=== PATIENT | female | born 1945 | race Caucasian/White ===

== ENCOUNTER → 2017-11-05 | Outpatient (CLI) | payer MEDICARE, BC ==
[~2017-11-05] MED LIST: ASCO500 PO; Advil200 M1 PO; CIPR250 PO; CYAN1000I IM; FERSU300 PO; HYDMOR2 PO; Humalog100 UNIT/1; INSR10I SC; INSULANI SC; INSULANPEN SC; KETO60I IM; METO10 PO; METO25ER; NATURAL LUTEIN20 MG PO; PROM25 PO; Percocet 5-3251 EACH PO; RABE20 PO; RXHYDMOR2 PO; TAMS.4ER PO; VITB100 PO; Zofran Odt4 MG SL
== END | disposition home or self-care (01) ==
LOC: PLD 07:41 → LAB SHORT 07:41
DX: R60.9 Edema, unspecified (principal); L98.9 Disorder of the skin and subcutaneous tissue, unspecified
CPT/HCPCS: 88305; 88312

== ENCOUNTER → 2020-10-24 | Outpatient (CLI) | payer MEDICARE, BC | END | disposition home or self-care (01) | LOC: LAB 17:26 → LAB SHORT 17:26 | DX: L08.0 Pyoderma (principal) | CPT/HCPCS: 87070; 87077; 87186; 87205 ==

== ENCOUNTER 2025-03-20 02:57 | Emergency (ER) | payer MEDICARE, BC ==
[~2025-03-20] VITALS: Ht 165.1 cm; Wt 63.5 kg
[~2025-03-20 02:57] MED LIST changes: +HUMALOG100 UNIT/1 SC; -Humalog100 UNIT/1; +INSDET100 SC; +PRAVACHOL20 M1 PO; +RABEPRAZOLE SOD20 MG PO
[2025-03-20] MEDS ORDERED: FentaNYL Citrate 50 MCG/ML 2 ML Injection IV PRN (03:25)
[2025-03-20] MEDS ORDERED: Ondansetron HCl 2 MG / ML 2ML Vial ONE (03:27)
[2025-03-20 03:28] LABS: BASOPHILS ABSOLUTE AUTO 0.03 K/mm3 (0.00-0.23); BASOPHILS PERCENT AUTO 1 % (0-2); EOSINOPHILS ABSOLUTE AUTO 0.10 K/mm3 (0.00-0.68); EOSINOPHILS PERCENT AUTO 2 % (0-6); Hematocrit 31.4 % (33.0-51.0); Hemoglobin 10.6 g/dL (11.5-16.0); IMMATURE GRAN ABSOLUTE AUTO 0.02 K/mm3 (0.00-0.10); IMMATURE GRAN PERCENT AUTO 0 % (0-1); LYMPHOCYTES ABSOLUTE AUTO 2.22 K/mm3 (0.84-5.20); LYMPHOCYTES PERCENT AUTO 35 % (21-46); MONOCYTES ABSOLUTE AUTO 0.43 K/mm3 (0.16-1.47); MONOCYTES PERCENT AUTO 7 % (4-13); Mean Corpuscular HGB Conc 33.8 g/dL (31.5-36.5); Mean Corpuscular Volume 86 fL (80-100); NEUTROPHILS ABSOLUTE AUTO 3.57 K/mm3 (1.96-9.15); NEUTROPHILS PERCENT AUTO 56 % (41-73); NRBC ABSOLUTE 0.00 K/mm3 (0.00-0.02); NRBC Auto 0.0 /100 WBC (0.0-0.2); Platelet Count 240 K/mm3 (150-400); RDW Coefficient Variation 12.8 % (11.7-14.2); RDW Standard Deviation 40.2 fL (35.1-46.3)
[2025-03-20] MEDS ORDERED: Ondansetron HCl 2 MG / ML 2ML Vial IV ONE ×2 (03:30→07:50)
[2025-03-20 03:43] LABS: Alanine Aminotransfer (ALT/SGP 22.0 U/L (12-78); Albumin, Blood 3.7 g/dL (3.4-5.0); Albumin/Globulin Ratio 1.1 (0.8-1.8); Anion Gap 10.0 mmol/L (3-11); Aspartate Aminotrans (AST/SGOT 19.0 U/L (12-37); Bilirubin, Total 0.4 mg/dL (0.1-1.0); Blood Urea Nitrogen 21.0 mg/dL (8-24); CO2, Blood 23.0 mmol/L (21-32); Calcium, Blood 9.1 mg/dL (8.5-10.1); Chloride, Blood 110.0 mmol/L (98-108); Creatinine, Blood 1.08 mg/dL (0.40-1.00); Globulin, Blood 3.3 g/dL (2.2-4.0); Glucose, Blood 141.0 mg/dL (70-99); Potassium, Blood 3.2 mmol/L (3.5-5.5); Sodium, Blood 140.0 mmol/L (136-145); Total Protein, Blood 7.0 g/dL (6.4-8.2)
[2025-03-20] MEDS ORDERED: NS 1,000 ML IV SCH (04:15)
[2025-03-20] MEDS ORDERED: HYDROmorphone HCl/Pf 1MG SYR IV PRN (04:15)
[2025-03-20] MEDS ORDERED: Prochlorperazine Edisylate 10 mg Vial IV ONE (05:00)
[2025-03-20 07:37] LABS: Source, Urine Clean Catch
[2025-03-20 07:51] LABS: Bilirubin, Urine Neg (Neg); Color, Urine Yellow (P-Yellow); Glucose Qualitative, Urine 2+ (Neg); Ketones, Urine 2+ (Neg); Leukocyte Esterase, Urine Neg (Neg); Protein, Urine 2+ (Neg); Specific Gravity, Urine 1.015 (1.003-1.022); Urobilinogen, Urine NORM (Normal)
[2025-03-20 08:01] LABS: Red Blood Cells, Urine 25-50 /hpf (0-2)
[2025-03-20] MEDS ORDERED: TAMS.4ER PO (08:58)
[2025-03-20] MEDS ORDERED: ONDA4ODT MM (08:58)
[2025-03-20] MEDS ORDERED: HYDR1TAB94 PO (08:58)
[2025-03-20 09:15] VITALS: BP 157/59
== END 2025-03-20 09:30 | disposition home or self-care (01) ==
LOC: ER 02:57
PROVIDERS: Emergency Medicine
DX: N20.0 Calculus of kidney (principal); Z88.0 Allergy status to penicillin; Z88.2 Allergy status to sulfonamides; Z88.5 Allergy status to narcotic agent; Z79.899 Other long term (current) drug therapy; E11.9 Type 2 diabetes mellitus without complications; I10 Essential (primary) hypertension; Z87.442 Personal history of urinary calculi; Z87.891 Personal history of nicotine dependence
CPT/HCPCS: 80053; 81001; 85025; 96361; 96374; 96375; 96376; 99283-25; 99284; A9270; J0780; J1171; J1885; J2405; J2765; J3010; J7030; J7120

== ENCOUNTER 2025-03-22 22:13 | Inpatient (IN) | payer MEDICARE, BC ==
[~2025-03-22] VITALS: Ht 165.1 cm; Wt 71.5 kg
[~2025-03-22 22:13] MED LIST changes: +HYDR1TAB94 PO; +ONDA4ODT MM
[2025-03-22 22:35] LABS: BASOPHILS ABSOLUTE AUTO 0.03 K/mm3 (0.00-0.23); BASOPHILS PERCENT AUTO 0 % (0-2); EOSINOPHILS ABSOLUTE AUTO 0.01 K/mm3 (0.00-0.68); EOSINOPHILS PERCENT AUTO 0 % (0-6); Hematocrit 29.9 % (33.0-51.0); Hemoglobin 9.9 g/dL (11.5-16.0); IMMATURE GRAN ABSOLUTE AUTO 0.09 K/mm3 (0.00-0.10); IMMATURE GRAN PERCENT AUTO 1 % (0-1); LYMPHOCYTES ABSOLUTE AUTO 0.31 K/mm3 (0.84-5.20); LYMPHOCYTES PERCENT AUTO 3 % (21-46); MONOCYTES ABSOLUTE AUTO 0.23 K/mm3 (0.16-1.47); MONOCYTES PERCENT AUTO 3 % (4-13); Mean Corpuscular HGB Conc 33.1 g/dL (31.5-36.5); Mean Corpuscular Volume 87 fL (80-100); NEUTROPHILS ABSOLUTE AUTO 8.51 K/mm3 (1.96-9.15); NEUTROPHILS PERCENT AUTO 93 % (41-73); NRBC ABSOLUTE 0.00 K/mm3 (0.00-0.02); NRBC Auto 0.0 /100 WBC (0.0-0.2); Platelet Count 116 K/mm3 (150-400); RDW Coefficient Variation 13.2 % (11.7-14.2); RDW Standard Deviation 42.5 fL (35.1-46.3)
[2025-03-22 22:53] LABS: Alanine Aminotransfer (ALT/SGP 29.0 U/L (12-78); Albumin, Blood 3.0 g/dL (3.4-5.0); Albumin/Globulin Ratio 0.9 (0.8-1.8); Anion Gap 12.0 mmol/L (3-11); Aspartate Aminotrans (AST/SGOT 49.0 U/L (12-37); Bilirubin, Total 0.3 mg/dL (0.1-1.0); Blood Urea Nitrogen 39.0 mg/dL (8-24); CO2, Blood 22.0 mmol/L (21-32); Calcium, Blood 8.6 mg/dL (8.5-10.1); Chloride, Blood 107.0 mmol/L (98-108); Creatinine, Blood 2.4 mg/dL (0.40-1.00); Globulin, Blood 3.5 g/dL (2.2-4.0); Glucose, Blood 123.0 mg/dL (70-99); Potassium, Blood 3.8 mmol/L (3.5-5.5); Sodium, Blood 137.0 mmol/L (136-145); Total Protein, Blood 6.5 g/dL (6.4-8.2)
[2025-03-22] MEDS ORDERED: NS 1,000 ML IV SCH (23:30)
[2025-03-23] VITALS (22 sets, daily range): BP systolic 122–192; BP diastolic 56–136
[2025-03-23] MEDS ORDERED: Morphine Sulfate 4 MG/1 ML Injection IV ONE (00:05)
[2025-03-23 00:48] LABS: pH Blood Venous 7.32 (7.34-7.37)
[2025-03-23] MEDS ORDERED: HYDROmorphone HCl/Pf 1MG SYR IV ONE (01:05)
[2025-03-23 02:48] LABS: pH Blood Venous 7.27 (7.34-7.37)
[2025-03-23] MEDS ORDERED: Metoclopramide HCl 5MG / ML 2ML Vial IV PRN (03:00)
[2025-03-23] MEDS ORDERED: Ketorolac Tromethamine 15mg Vial IV PRN (03:00)
[2025-03-23] MEDS ORDERED: FentaNYL Citrate 50 MCG/ML 2 ML Injection IV PRN (03:00)
[2025-03-23] MEDS ORDERED: FLU VACC TS2025(65UP)/MF59C/PF 45 MCG/0.5 ML SYRINGE IM SCH (03:00)
[2025-03-23] MEDS ORDERED: Labetalol HCL 5 MG/ML 4ML Injection (Single Dose) IV PRN (03:15)
[2025-03-23] MEDS ORDERED: HydrALAZINE HCl 20 MG / ML 1ML Vial IV PRN (03:15)
[2025-03-23] MEDS ORDERED: Furosemide 10 MG / ML 2ML Vial IV ONE (03:25)
[2025-03-23] MEDS ORDERED: INSDET100 (03:40)
[2025-03-23 04:04] LABS: BASOPHILS ABSOLUTE AUTO 0.03 K/mm3 (0.00-0.23); BASOPHILS PERCENT AUTO 0 % (0-2); EOSINOPHILS ABSOLUTE AUTO 0.00 K/mm3 (0.00-0.68); EOSINOPHILS PERCENT AUTO 0 % (0-6); Hematocrit 33.0 % (33.0-51.0); Hemoglobin 11.0 g/dL (11.5-16.0); IMMATURE GRAN ABSOLUTE AUTO 0.13 K/mm3 (0.00-0.10); IMMATURE GRAN PERCENT AUTO 1 % (0-1); LYMPHOCYTES ABSOLUTE AUTO 0.27 K/mm3 (0.84-5.20); LYMPHOCYTES PERCENT AUTO 3 % (21-46); MONOCYTES ABSOLUTE AUTO 0.26 K/mm3 (0.16-1.47); MONOCYTES PERCENT AUTO 3 % (4-13); Mean Corpuscular HGB Conc 33.3 g/dL (31.5-36.5); Mean Corpuscular Volume 87 fL (80-100); NEUTROPHILS ABSOLUTE AUTO 9.24 K/mm3 (1.96-9.15); NEUTROPHILS PERCENT AUTO 93 % (41-73); NRBC ABSOLUTE 0.00 K/mm3 (0.00-0.02); NRBC Auto 0.0 /100 WBC (0.0-0.2); Platelet Count 115 K/mm3 (150-400); RDW Coefficient Variation 13.2 % (11.7-14.2); RDW Standard Deviation 42.2 fL (35.1-46.3)
[2025-03-23 04:43] LABS: Anti-Xa UFH, PHA Monitoring <0.10 IU/mL; Prothrombin Time Results 11.3 Sec (9.7-11.5)
[2025-03-23 04:44] LABS: Alanine Aminotransfer (ALT/SGP 30 U/L (12-78); Albumin, Blood 3.0 g/dL (3.4-5.0); Albumin/Globulin Ratio 0.8 (0.8-1.8); Anion Gap 12 mmol/L (3-11); Aspartate Aminotrans (AST/SGOT 47 U/L (12-37); Bilirubin, Total 0.4 mg/dL (0.1-1.0); Blood Urea Nitrogen 39 mg/dL (8-24); CHOL/HDL RATIO 2.5; CO2, Blood 21 mmol/L (21-32); Calcium, Blood 8.6 mg/dL (8.5-10.1); Chloride, Blood 107 mmol/L (98-108); Cholesterol 132 mg/dL (50-200); Creatinine, Blood 2.23 mg/dL (0.40-1.00); Globulin, Blood 3.6 g/dL (2.2-4.0); Glucose, Blood 100 mg/dL (70-99); HDL Cholesterol 53 mg/dL (>39); LDL/HDL RATIO 0.9; Low Density Lipoprotein Chol 50 mg/dL (0-110); Magnesium, Blood 1.9 mg/dL (1.6-2.4); Phosphorus, Blood 3.0 mg/dL (2.5-4.9); Potassium, Blood 3.8 mmol/L (3.5-5.5); Sodium, Blood 136 mmol/L (136-145); Total Protein, Blood 6.6 g/dL (6.4-8.2); Triglycerides 147 mg/dL (30-160); Very Low Density Lipoprot Chol 29 mg/dL (6-32)
[2025-03-23] MEDS ORDERED: Heparin Sodium,Porcine/0.5 NS 500 ML IV SCH (04:50)
[2025-03-23] MEDS ORDERED: Heparin Sodium 5000 Units/ML 1ML MDV IV ONE (04:50)
[2025-03-23 05:32] LABS: Source, Urine Straight Cath
[2025-03-23 05:48] LABS: Bilirubin, Urine Neg (Neg); Color, Urine Yellow (P-Yellow); Glucose Qualitative, Urine Neg (Neg); Ketones, Urine 2+ (Neg); Leukocyte Esterase, Urine 3+ (Neg); Protein, Urine 2+ (Neg); Specific Gravity, Urine 1.015 (1.003-1.022); Urobilinogen, Urine NORM (Normal)
--- NOTE | 2025-03-23 06:00 | NUR ---
SHIFT SUMMARY: THIS RN RECEIVED REPORT FROM CYNTHIA ED RN, AT ABOUT 0255, PRIOR TO PT COMING TO ICU RM 7. PT TRANSPORTED TO ICU VIA GURNEY BY ELVIA STEINER. THIS RN ASSUMED CARE OF PT. PT A&O X4 ON ARRIVAL. ABLE TO MAKE NEEDS KNOWN AND FOLLOW COMMANDS. THIS REMAINED UNCHANGED T/O SHIFT. PT C/O OF NAUSEA AND OBSERVED TO DRY-HEAVE SEVERAL TIMES. PT MEDICATED WITH NAUSEA MEDICATION ON EMAR. PT AFEBRILE ON ARRIVAL AND REMAINS SO T/O SHIFT. PT NOTED TO BE TACHYCARDIC AND HYPERTENSIVE ON ARRIVAL. PT DENIED CHEST PAIN OR SOB. PT C/O OF LOWER BACK PAIN AND BILAT GROIN PAIN. PT ON AIRVO AT 75% FIO2, SATS >95%. FIO2 TITRATED DOWN T/O SHIFT, FIO2 CURRENTLY AT 55% W/ SATS>95%. PT STATED THAT HER LAST BM HAD BEEN AT LEAST 5 DAYS AGO. SHE REPORTED THAT SHE HAD NOT TAKEN ANYTHING AT HOME FOR BOWEL CARE. PT WAS ALSO UNABLE TO RECALL THE LAST TIME SHE HAD VOIDED. BLADDER SCAN WAS DONE-POST VOID (PT HAD HAD AN UNMEASURED VOID THAT THE PUREWICK SHE HAD DID NOT SUCTION). BLADDER SCAN SHOWED MORE THAN 400ML URINE. PT WAS STRAIGHT CATHED AND 700ML URINE WERE DRAINED FROM PTS BLADDER. UA SENT TO LAB. PT REPORTED FEELING "MUCH BETTER." ATTENDS WERE PLACED AND THIS RN TO CONTINUE TO MONITOR AND REPORT TO ONCOMING SHIFT. PT HAS 2 PIV IN RAC AND LAC. INFUSING ARE HEPARIN GTT PER EMAR ORDERS. CARE CONTINUES. CALL LIGHT WITHIN REACH AND BED IN LOWEST POSTIION.
[2025-03-23 06:21] LABS: White Blood Cells, Urine 25-50 /hpf (0-5)
[2025-03-23 06:47] LABS: Influenza A, PCR NEGATIVE (NEGATIVE); Influenza B, PCR NEGATIVE (NEGATIVE); Resp Syncytial Virus, PCR NEGATIVE (NEGATIVE); SARS-Cov-2 (COVID-19) PCR, MMC NEGATIVE (NEGATIVE)
[2025-03-23 07:17] LABS: pH Blood Venous 7.40 (7.34-7.37)
[2025-03-23] MEDS ORDERED: Insulin Human Lispro 100 Units/ML 3ML Syringe SC SCH (07:30)
[2025-03-23] MEDS ORDERED: CefTRIAXone Sodium 1,000 MG in NS 100 ML IV SCH (07:30)
--- NOTE | 2025-03-23 08:54 | NUR ---
tal received and reviewed. no polst found on file or through opr. pt is currently DNR.
[2025-03-23] MEDS ORDERED: Lactobacil 2-S.Thermo-Bifido 1 1 Cap PO SCH (09:00)
[2025-03-23] MEDS ORDERED: Enoxaparin 40 MG/0.4 ML SYR SC SCH (09:00)
--- NOTE | 2025-03-23 11:40 | NUR ---
"Spiritual Care | Pt. Request Pt. is awake in bed when she welcomes my visit. Pt. is pleasant. Facilitated a life review and listen with empathy and interest. Pt. verbalizes a request for prayer. Considered matters of karen and belief. Prayed with the Pt. Pt. displayed evidence of being encouraged, and verbalized gratitude for the spiritual care visit."
--- NOTE | 2025-03-23 12:36 | NUR ---
AM SUMMARY: ASSUMED CARE OF PT AT APPROX 0715 AFTER RECEIVING REPORT FROM JATIN BALDERAS. PT HAS BEEN A&Ox4, ABLE TO COMMUNICATE NEEDS. PT HAS TRANSITIONED FROM HHNC TO RA, O2 SATS >93%, DENIES SOB. PT ENDORSES PRESSURE SENSATION IN CHEST, DENIES WORSENING. ECHO COMPLETED THIS AM AT BEDSIDE, CARDIOLOGY CONSULT COMPLETED AT BEDSIDE. SR/ST ON MONITOR, RATE MOSTLY 80s-100s. PT STATES IMPROVEMENT TO NAUSEA, MINIMAL APPETITE WHICH SHE STATES IS NORMAL FOR HER. PT REPORTS FREQUENT SMALL AMOUNT OF URINARY INCONTINENCE AT BASELINE, PUREWICK PLACED AND IS DRAINING CLEAR YELLOW URINE TO LCS. PT's MAIN C/O IS A SPASM FEELING IN HER BLADDER AFTER URINATING. URINE SAMPLE ALREADY COLLECTED, CULTURE PENDING. IV ABX THERAPY HAS BEEN INITIATED. HEPARIN INFUSING PER ORDERS.
--- NOTE | 2025-03-23 14:40 | NUR ---
UPDATE: PT CONTINUES TO C/O BURNING DISCOMFORT IN GROIN/ABD/L FLANK AREA. PROVIDER NOTIFIED, BLADDER SCAN COMPLETED SHOWING 600ML DESPITE PT VOIDING 650ML VIA PUREWICK. PROVIDER GIVES VERBAL ORDER FOR TORRES CATHETER PLACEMENT. CATHETER PLACED, PT TOLERATED WELL. PT HAS RECEIVED NEW ROOM ASSIGNMENT IN PCU, WILL GIVE REPORT AND TRANSFER PT ONCE ROOM HAS BEEN PREPARED.
--- NOTE | 2025-03-23 15:48 | NUR ---
TRANSFER: PT HAS BEEN TRANSFERED TO PCU VIA WHEELCHAIR W/OUT INCIDENT. REPORT GIVEN TO JATIN JENNINGS TO RECEIVE PT.
--- NOTE | 2025-03-23 17:42 | NUR ---
TRANSFER NOTE/SUMMARY PT TRANSFERRED FROM ICU-7. BROUGHT UP VIA WHEELCHAIR AND PT TRANSFERRED INDEPENDENTLY FROM CHAIR TO BED WITH LINE MANAGEMENT. HEPARIN GTT INFUSING TO RAC AT 18.9 ML/HR. B/P INITIALLY ELEVATED SYSTOLICALLY IN THE 170'S PRN HYDRALAZINE WAS GIVEN 10 MG AND BROUGHT DOWN TO SYSTOLICALLY 149. PT REPORTS PAIN 5/10 TO BLADDER/GROIN. TORRES WAS PLACED PRIOR TO TRANSFER TODAY FOR RETENTION. PT CONTINUES TO REPORT PAIN DR. COX WAS NOTIFIED AND ORDERED SCHEDULED OXYBUTININ AND PRN OXYCODONE. PT TOOK BOTH OF THOSE THIS EVENING AFTER PRN REGLAN FOR NUASEA. PT HAD REPORTED HAVING BLADDER SPASMS PRIOR TO TORRES PLACEMENT. PT ONLY KEPT WATER AND FRUIT FROM DINNER TRAY, NAUSEA WAS STILL PRESENT AT TIME OF TRAY ARRIVAL BUT PER REPROT PT HAS A POOR APPETITE. PT HAS SCABS SCATTERED T/O, LEFT UPPER ARM SCAB COVERED WITH BANDAID BUT DUE TO BLOOD PRESSURE READINGS HAS SLOWLY BEEN CONTINUING TO BLEED. PT'S PCP DR. MYERS DID STOP BY THIS EVENING. PT ON CONTINUOUS PULSE OX AND ON ROOM AIR SHE WILL OCCASIONALLY DROP TO 886-87% AT REST. PLACED PT BACK ON 1L NC.
[2025-03-23] MEDS ORDERED: Dose Adjust by Pharmacy XX STA (18:22)
[2025-03-24 04:17] VITALS: BP 154/72
[2025-03-24 04:44] LABS: BASOPHILS ABSOLUTE AUTO 0.02 K/mm3 (0.00-0.23); BASOPHILS PERCENT AUTO 0 % (0-2); EOSINOPHILS ABSOLUTE AUTO 0.04 K/mm3 (0.00-0.68); EOSINOPHILS PERCENT AUTO 1 % (0-6); Hematocrit 30.8 % (33.0-51.0); Hemoglobin 10.1 g/dL (11.5-16.0); IMMATURE GRAN ABSOLUTE AUTO 0.03 K/mm3 (0.00-0.10); IMMATURE GRAN PERCENT AUTO 0 % (0-1); LYMPHOCYTES ABSOLUTE AUTO 0.71 K/mm3 (0.84-5.20); LYMPHOCYTES PERCENT AUTO 9 % (21-46); MONOCYTES ABSOLUTE AUTO 0.54 K/mm3 (0.16-1.47); MONOCYTES PERCENT AUTO 7 % (4-13); Mean Corpuscular HGB Conc 32.8 g/dL (31.5-36.5); Mean Corpuscular Volume 86 fL (80-100); NEUTROPHILS ABSOLUTE AUTO 6.62 K/mm3 (1.96-9.15); NEUTROPHILS PERCENT AUTO 83 % (41-73); NRBC ABSOLUTE 0.00 K/mm3 (0.00-0.02); NRBC Auto 0.0 /100 WBC (0.0-0.2); Platelet Count 126 K/mm3 (150-400); RDW Coefficient Variation 13.1 % (11.7-14.2); RDW Standard Deviation 41.0 fL (35.1-46.3)
--- NOTE | 2025-03-24 04:46 | NUR ---
EDUCATED PT PT CALLED THIS RN INTO ROOM USING CALL LIGHT, UPON ARRIVAL PT STATED HER BLOOD SUGAR WAS 74 AND REQUESTED SOME APPLE JUICE, RN RETRIEVED APPLE JUICE AND ASKED PT HOW SHE WAS ABLE TO GET HER BLOOD SUGAR, PT INFOMRED RN THAT SHE POKED HER FINGER TO CHECK, THIS RN EDUCATED PT TO CALL IF SHE FELT HER BLOOD SUGAR WAS LOW SO THAT WE COULD USE OUR MACHINES FOR THE FUTURE, PT EXPRESSED UNDERSTANDING.
[2025-03-24 05:15] LABS: Albumin, Blood 2.6 g/dL (3.4-5.0); Anion Gap 13 mmol/L (3-11); Blood Urea Nitrogen 48 mg/dL (8-24); CO2, Blood 21 mmol/L (21-32); Calcium, Blood 8.9 mg/dL (8.5-10.1); Chloride, Blood 107 mmol/L (98-108); Creatinine, Blood 2.33 mg/dL (0.40-1.00); Glucose, Blood 67 mg/dL (70-99); Phosphorus, Blood 3.1 mg/dL (2.5-4.9); Potassium, Blood 3.5 mmol/L (3.5-5.5); Sodium, Blood 137 mmol/L (136-145)
--- NOTE | 2025-03-24 05:57 | NUR ---
SHIFT SUMMARY PT IS A&O X4, ABLE TO MAKE NEEDS KNOWN, MOVING ALL EXTREMITIES WITH PURPOSE, Q2 REPOSITIONING BY STAFF. CONTINUOUS SPO2, SPO2 GREATER THAN 92% ON RA, LUNGS SOUND CLEAR T/O, PT DENIES SOB WHILE AT REST. CONTINUOUS TELE MONITORING, SINUS 80-100 S, CAP REFILL WNL, PULSES PRESENT T/O, PT DENIES CHEST P/P T/O THIS SHIFT. BOWEL TONES PRESENT IN ALL 4Q, PT REPORTING NAUSEA INTERMITENTLY/ MEDICATED PER ORDERS AND PT REQUEST, PT REPORTS BEING UNABLE TO KEEP FOOD DOWN AND HAS POOR APPETITE DUE TO THE NAUSEA, . TORRES CATH IS PATENT/DRAINING TO GRAVITY/ SECURE. BED LOWEST POSITION, CALL LIGHT IN REACH, AWAITING TO GIVE REPORT TO ONCOMING RN.
[2025-03-24 07:12] VITALS: BP 182/77
--- NOTE | 2025-03-24 09:04 | NUR ---
am note this rn asssumed care at 0700. blood pressure hypertensive this morning and this rn medicated patient with prn hydralazine and upon reassessment this improved patient blood pressure. see vital signs section. patient is alert and oriented x4. perrla. neuro is intact. patient is able to make needs known and uses call light appropriately. patient reports mid sternal chest pressure that has been consistent and patient stating " i think its from my barretts". patient denies pain or shortness of breath. patient lung sounds clear and dim throughout. see shift assessment for further detials. patient stating this morning "ready to go home and pass". this rn sat at bedside and discussed this more with the patient and explored how the patient was feeling. patient requesting a linette visit and this rn called nursing furnace room supervisor whom calling in linette. this rn called palliative care so they can come visit and discuss changes. this rn updated md burden and plan to discuss patient plan once md is rounding.
--- NOTE | 2025-03-24 09:34 | NUR ---
update md burden in the room and discussing goals of care and plan with the patient. plan is for patient to switch to comfort care and to get the resources needed for home.
[2025-03-24] MEDS ORDERED: Haloperidol Lactate 2 MG / ML 15ML BTL PO PRN (09:40)
[2025-03-24] MEDS ORDERED: Haloperidol Lactate Inj. 5 MG/ML Injection IV PRN (09:40)
[2025-03-24] MEDS ORDERED: HYDROmorphone HCl/Pf 1MG SYR IV PRN (09:45)
[2025-03-24] MEDS ORDERED: Morphine Sulfate 10 MG/ML 1MLSYR IV PRN (09:45)
[2025-03-24] MEDS ORDERED: Morphine Sulfate 20 MG/1ML 1 ML Oral Syringe SL PRN (09:45)
[2025-03-24] MEDS ORDERED: LORazepam 2 MG/ML 1ML Injection IV PRN (09:45)
[2025-03-24] MEDS ORDERED: Ondansetron HCl 2 MG / ML 2ML Vial IV PRN (09:50)
[2025-03-24] MEDS ORDERED: Atropine Sulfate 1% Opth Soln 2ML BTL SL PRN (09:50)
[2025-03-24] MEDS ORDERED: Metoclopramide HCl 5MG / ML 2ML Vial IV PRN (09:55)
--- NOTE | 2025-03-24 10:00 | NUR ---
update md burden in the room and discussing goals of care with patient. plan is for patient to be comfort care and hospice refferal. patient comfort care status at this time.
--- NOTE | 2025-03-24 11:01 | NUR ---
Sandra (pt) is lying in bed and semi-concious, often keeping her eyes closed but is conversational and speaks with clarity. She has recently made the decision to go comfort care and feels resolved and "ready to go to [facility]." Provided a calming presence and attempted to conduct a life review but pt verbally expressed a difficulty speaking due to pain. Offered prayer and the pt accepted and thanked me. Pt appeared to be more relaxed. Attending nurse Jesika was attentive to pt's needs while I was present.
--- NOTE | 2025-03-24 17:16 | NUR ---
SHIFT SUMMARY see previous notes for updates throughout the day. no acute changes. patient nausea and pain is better controlled.
--- NOTE | 2025-03-25 02:27 | NUR ---
TRANSFER OF CARE THIS RN GAVE REPORT TO MEDICAL YASMANY Pressley @ APPROX 0157 PT TRANSFERED TO ROOM 342 @ APPROX 0216, PT TAKEN VIA BED. PT STATED SHE WANTS TO CALL HER SON IN THE MORNING TO INFORM HIM OF HER TRANSFER BECAUSE HE DOES NOT GET ALOT OF SLEEP DUE TO HIS CHEMO. PT IS A&O X4, ABLE TO MAKE NEEDS KNOWN, MOVING ALL EXTREMITIES WITH PURPOSE, PT REFUSING REPOSITIONING BY MEDICAL STAFF/ SLIGHTLY REPOSITIONING SELF. LUNGS SOUND CLEAR T/O, PT DENIES SOB WHILE AT REST, NO SIGNS OF ACUTE DISTRESS NOTED. PT DENIED CHEST P/P T/O THIS RN'S SHIFT. BOWEL TONES PRESENT IN ALL 4Q, PT REPORTING NAUSEA INTERMITENTLY/ MEDICATED PER ORDERS AND PT REQUEST. TORRES CATH IS PATENT/DRAINING TO GRAVITY/ SECURE, URINE YELLOW WITH SEDIMENT
--- NOTE | 2025-03-25 05:54 | NUR ---
PT CHECKED CBG WITH HOME CBG MACHINE, BLOOD SUGAR OF 522 RECEIVED. PT HESITANT TO RELINQUISH HOME INSULIN TO NURSING STAFF. ADEN CALLED AND PERMISSION GIVEN FOR PT TO ADMINISTER HOME INSULIN. PT ADMINISTERED 15 UNITS FOR A BLOOD SUGAR OF 522 UNDER THE OBSERVATION OF THIS NURSE. WILL CONTINUE TO MONITOR CBGS AND INSULIN ADMINISTRATION.
--- NOTE | 2025-03-25 06:19 | NUR ---
When doing cath care. I noticed pt taking own cbg. Pt is comfort care. Then noticed pt had own insulin and needles. ask pt to wait so i could noftiy RN. Notifed RN.
--- NOTE | 2025-03-25 06:32 | NUR ---
SHIFT SUMMARY PT A&OX4 AND ANSWERS QUESTIONS APPROPRIATELY. PT ON COMFORT CARE, MEDICATED PER EMAR FOR NAUSEA/VOMITING AND PAIN PRN. PT HAS HOME CBG MACHINE AND TOOK SELF CBG, GETTING A READING OF 522. PT ADVICED TO ALLOW STAFF TO TAKE INSULIN AND TO UTELIZE HOSPITAL SUPPLY. PT DECLINES TO GIVE INSULIN. ADEN CALLED AND PT GIVEN PERMISION TO ADMINISTER HOME INSULIN UNDER NURSES SUPPERVISION, AND TO MONITOR CBGS. PT SPENT SHIFT IN BED WITH EVEN RESPIRATIONS. FALL PRECAUTION IN PLACE, CALL LIGHT IN REACH
--- NOTE | 2025-03-25 06:51 | NUR ---
RETOOK PT CBG, SHOWS A BLOOD SUGAR OF 416, PT DECLINES FURTHER INSULIN AT THIS TIME. WILL PASS TO DAY SHIFT TO RETAKE CBG WITHIN THE NEXT HOUR.
[2025-03-25] MEDS ORDERED: Insulin Regular 100 UNIT/ML 10ML Vial SC SCH (07:30)
--- NOTE | 2025-03-25 08:18 | NUR ---
NOTE NIGHT RN NOTIFIED THIS RN TO RECHECK BLOOD SUGAR IN ONE HOUR. THIS RN NOTIFIED MEAT CURER. BLOOD SUGAR OVER 500. THIS RN NOTIFIED DR. COX. PT ON COMFORT CARE. DR. COX REPORTED "WILL COME TALK TO PT. PT WANTS TO PASS PER COMFORT CARE ORDERS, HOLD INSULIN FOR NOW" DR. COX CAME TO ASSESS PT AND TALK WITH PT. REPORTED "WILL PUT IN Q4 CHECKS AND UPDATE ORDER. PT WANTS CBG CHECKS."
--- NOTE | 2025-03-25 08:28 | NUR ---
NOTE DR. COX REPORTED "PT NOT TO GIVE OWN INSULIN. NURSING STAFF TO MANAGE CBG AND INSULIN."
--- NOTE | 2025-03-25 08:59 | NUR ---
NOTE DR. COX REPORTED "NONEED LAB GLUCOSE GO OFF OF CBG. Q4 CBG CHECKS. INSULIN COORDINATES. BE AGRESSIVE WITH TREATMENT."
[2025-03-25] MEDS ORDERED: Insulin Human Lispro 100 Units/ML 3ML Syringe SC SCH (09:00)
--- NOTE | 2025-03-25 09:06 | NUR ---
NOTE PT REF PAIN MEDS AND NAUSEA MEDS. EMESIS BAG AT BEDSIDE.
--- NOTE | 2025-03-25 09:25 | NUR ---
NOTE PT REPORTS "NO PAIN JUST NAUSEA." PT AGREEABLE FOR NAUSEA MEDS. THIS RN GAVE NAUSEA MEDS.
--- NOTE | 2025-03-25 15:00 | NUR ---
NOTE PT REPORTS NO PAIN, ENDORSES NAUSEA. ZOFRAN IS Q8 AND REGLAN IS Q6. PT OFFERED PO TAB OF PHENERGEN OR SUPP. PT REPORTS RATHER WAIT 20 MIN FOR IV REGLAN THAN SUPPOSITORY.
--- NOTE | 2025-03-25 17:28 | NUR ---
SHIFT SUMMARY PT A&OX4. PT ADMITTED DUE TO ACUTE HYPOXIC RESP FAILURE. PT REPORTS NO SOB AND NO CHEST PAIN. PT ON BEDREST. PT ENDORSES NAUSEA, REF PHENERGEN SUPP. PT MEDIACATED WITH ZOFRAN AND REGLAN FOR NAUSEA. PT VOMITTED THIS AM. EMESIS BAG AT BEDSIDE. PT REPORTS PAIN GENERALIZED, PAIN MANAGED PER EMAR. PT GETTING Q4 CBG CHECKS, INSULIN GIVEN PER EMAR. PT LAST BLOOD SUGAR WAS 231. PT REFUSED 6 UNITS OF INSULIN AT 1600. DR. COX NOTIFIED AND REPORTED "OK". PT HAS COMFORT CARE ORDERS. HEMOTOLOGY REPORTED POSITIVE BLOOD CULTURES, THIS RN REPORTED RESULTS TO DR. COX. PT DECLINED REPOSITIONING BUT ABLE TO SLIGHTLY REPOSITION SELF IN BED. PT IN BED, BED IN LOWEST POSITION, LOCKED, CALL LIGHT IN REACH. PLAN FOR HOSPICE. COMFORT CARE ASSESS COMPLETE. SON AT BEDSIDE TODAY.
--- NOTE | 2025-03-26 00:36 | NUR ---
PROVIDER CONTACT PT [facility] 265. PT REQUESTED 3 UNITS OF 0000 ORDERED HUMALOG KWIKPEN INSTEAD. DR. SAMANIEGO NOTIFIED, WHO OKAY'D 3 UNITS OF HUMALOG TO BE GIVEN TO PT PER PT'S WISHES.
--- NOTE | 2025-03-26 07:39 | NUR ---
POULTRY HUSBANDRY TEACHER SUMMARY PT A&OX4, ON COMFORT CARE. ABLE TO COMMUNICATE NEEDS APPROPRIATELY. PT HAS BEEN ASLEEP FOR MOST OF THE NIGHT. CHEST RISE/RESPIRATIONS NOTED. MORPHINE AND REGLAN ADMIN X 1 EACH PER EMAR W/ GOOD EFFECT. PT CONTINUES TO BE ON Q4 BGC PER PT REQUEST. PT REQUESTS DOSAGE OF INSULIN BASED ON HER OWN CALCULATIONS. DR. SAMANIEGO NOTIFIED OF EACH DOSAGE REQUEST. INSULIN ADMIN PER EMAR. BED RAILS UP X 2, BED IN LOWEST POSITION, BED WHEELS LOCKED, PERSONAL BELONGINGS AND CALL LIGHT WITHIN REACH FOR SAFETY.
--- NOTE | 2025-03-26 16:09 | NUR ---
PT REPORTS MINOR CHEST PAIN. REFUSED PAIN MEDS. STATES IS OKAY.
--- NOTE | 2025-03-26 17:16 | NUR ---
PT ON COMFORT CARE. IS DEFENSIVE REGARDING HER INSULIN AND POSSIBLY OTHER MEDICATIONS AT BEDSIDE. STATES DOSE NOT TAKE. REFUSED TO GIVE TO ME TO LOCK UP. THERE IS AN ORDER ALLOWING HER TO KEEP AT BEDSIDE. NEIGHBOR BROUGHT IN HER DOG TO VISIT TODAY. PT ADJUSTING THE AMOUNT OF INSULIN SHE ACCEPTING TO TAKE. CBG WAS 356 AND SHOULD RECEIVE 15 UNITS. SHE AGREED TO [address] COX. HE AWARE. BED IN LOW POSITION,C ALL LITE IN REACH, CALLS APPROP
--- NOTE | 2025-03-26 20:53 | NUR ---
PROVIDER CONTACT DR. NASCIMENTO NOTIFIED OF PT'S DESIRE TO RECEIVE 6 UNITS OF INSULIN BASED ON [address] NASCIMENTO OKAY'D DOSE. ORDER ALSO OBTAINED TO SWITCH SLIDING SCALE FROM HIGH SLIDING SCALE TO LOW SLIDING SCALE PER PT'S WISHES.
--- NOTE | 2025-03-26 20:57 | NUR ---
PROVIDER CONTACT DR. NASCIMENTO NOTIFIED OF PT'S DESIRE TO RECEIVE 6 UNITS OF INSULIN BASED ON [address] NASCIMENTO OKAY'D DOSE. ORDER ALSO OBTAINED TO SWITCH SLIDING SCALE FROM HIGH SLIDING SCALE TO LOW SLIDING SCALE PER PT'S WISHES TO DEVIATE FROM PRESCRIBED HIGH SLIDING SCALE.
[2025-03-27 04:41] VITALS: BP 188/68
--- NOTE | 2025-03-27 04:58 | NUR ---
PROVIDER CONTACT BP TAKEN BY FOREIGN BANKNOTE TELLER TRADER PER PT REQUEST. BP 188/68. PT REQUESTED BP MEDICATION FOR THIS. DR. SAMANIEGO NOTIFIED. 10 MG HYDRALAZINE IV X 1 ORDERED.
[2025-03-27] MEDS ORDERED: HydrALAZINE HCl 20 MG / ML 1ML Vial IV ONE (05:00)
--- NOTE | 2025-03-27 07:22 | NUR ---
APPLIED MARINE PHYSICS PROFESSOR SUMMARY PT A&OX4, ON COMFORT CARE. PT HAS BEEN ASLEEP ON AND OFF THIS SHIFT. CHEST RISE/RESPIRATIONS NOTED. MORPHINE AND REGLAN CONTINUE TO BE GIVEN PER EMAR. PROVIDER NOTIFIED OF PT'S DESIRES FOR LESS INSULIN. PT SWITCHED TO LOW SLIDING SCALE PER PROVIDER ORDER. SEE PROVIDER CONTACT NOTES FOR DETAILS. BP RECHECK AFTER HYDRALAZINE ADMIN REFUSED. PER PT, SON COMING IN TODAY TO PICK HER UP FOR DISCHARGE. BED RAILS UP X 2, BED IN LOWEST POSITION, BED WHEELS LOCKED, PERSONAL BELONGINGS AND CALL LIGHT WITHIN REACH FOR SAFETY.
[2025-03-27] MEDS ORDERED: Diazepam 5 MG / ML 2ML SYR IV PRN (09:25)
--- NOTE | 2025-03-27 11:20 | NUR ---
ROUNDED ON PATIENT WITH PROVIDER. DISCUSSED HOSPICE. REVIEWED WITH [facility]. RN AND JOINT SPECIAL OPERATIONS FROM [facility] WILL ROUND ON PATIENT TO CONTINUE EDUCATION
--- NOTE | 2025-03-27 17:25 | NUR ---
SHIFT SUMMARY NO ACUTE CHANGES, A/Ox4, REMAINS ON COMFORT CARE. MEDICATED PER EMAR FOR PAIN AND NAUSEA. ONLY WANTS REGLAN AND MORPHINE DUE TO ANYTHING PO GIVES PT INCREASED N/V. [facility] IN FOR EVAL TODAY - PT HAS NO CG AND FAMILY UNABLE TO RESIDE WITH PT AIRLINE PILOT FLIGHT INSTRUCTOR PUTTING A DELAY IN DC TO HOME WITH HOSPICE. PT REFUSES REPOSITIONING. SLEEPS OFTEN, ONLY WAKENS WHEN FAMILY PRESENT OR WHEN STAFF COMPLETES CARE. MINIMAL INTAKE - SIPS OF FLUIDS AND BITES OF YOGURT. BILATERAL PIV SALINE LOCKED. TORRES PATENT AND DRAINING HERBERT COLORED URINE c SEDIMENT. MINIMAL URINE OUTPUT T/O SHIFT. PT CURRENTLY RESTING IN BED WITH BED IN LOWEST POSITION AND CALL LIGHT WITHIN REACH. PT RESTING PEACEFULLY c NO S/SX OF DISTRESS.
[2025-03-27 19:17] VITALS: BP 135/113
[2025-03-28] MEDS ORDERED: Insulin Human Lispro 100 Units/ML 3ML Syringe SC ONE (05:00)
--- NOTE | 2025-03-28 06:25 | NUR ---
SHIFT SUMMARY NOC PT A/O X 4. PLEASANT AND COOPERATIVE WITH CARE. ON COMFORT CARE MEASURES, BUT STILL ON Q4H CBG WHICH WERE 319, 392, AND 380 WITH COVERAGE PROVIDED PER LCS. PT NAUSEA BEING MANAGED PER EMAR, AND PT PAIN WAS A CONSISTENT 3/10 AND THEY DECLINED PAIN MEDICATION. PT HAS TORRES IN PLACE WITH YELLOW URINE. PT PO INTAKE CONSISTED OF 2 VANILLA PUDDINGS AND IS DRINKING MODERATE AMOUNTS OF FLUIDS. PT CURRENTLY RESTING WITH BED IN LOWEST POSITION, AND CALL LIGHT WITHIN REACH.
--- NOTE | 2025-03-28 12:52 | NUR ---
DOCTOR CALLED, PATIENT REQUESTED 10 UNITS OF INSULIN, DR BROOKE SRIVASTAVA. PATIENT REQUESTING IV ABX, DOCTOR WILL SPEAK WITH PATIENT AND FAMILY
[2025-03-28 17:10] LABS: Source, Urine Foley catheter
[2025-03-28 17:14] LABS: Bilirubin, Urine Neg (Neg); Color, Urine Yellow (P-Yellow); Glucose Qualitative, Urine 3+ (Neg); Ketones, Urine 3+ (Neg); Leukocyte Esterase, Urine 3+ (Neg); Protein, Urine 3+ (Neg); Specific Gravity, Urine 1.015 (1.003-1.022); Urobilinogen, Urine NORM (Normal)
[2025-03-28 17:23] LABS: White Blood Cells, Urine 50-100 /hpf (0-5)
[2025-03-28 17:26] LABS: Red Blood Cells, Urine 25-50 /hpf (0-2)
--- NOTE | 2025-03-28 18:20 | NUR ---
END OF SHIFT NOTE PATIENT RESTING IN BED. REFUSING MOST MEDICATIONS ALL DAY. ASKING FOR MORE INSULIN THAN SLIDING SCALE REQUIRES. CALLS MADE TO DR COX. PATIENT REQUESTING IV ABX BUT CANT EXPLAIN WHY SHE THINKS SHE NEEDS IT, BUT REPEATS "403 IS DANGEROUS", WHICH WAS HER CBG LEVEL AT LUNCH TIME. DR COX AWARE. FAMILY IN TO VISIT TODAY. PATIENT REFUSED TO BE REPOSITIONED IN BED BUT CAN REPOSITION HERSELF, DID ALLOW ONE TURN AND SKIN CHECK TODAY WITH NURSE AND LEAD SPRINKLER. TORRES IN PLACE DRAINING YELLOW URINE TO GRAVITY. CALL LIGHT IN REACH, PATIENT A&O4, ABLE TO MAKE NEEDS KNOWN. NO OTHER CONCERNS FOR THIS SHIFT.
--- NOTE | 2025-03-29 00:19 | NUR ---
HOSPITALIST NOTIFIED THAT PT IS REQUESTING MORE INSULIN THAN [facility] Q6H COVERAGE REQUIRES, AND PT CHANGED FROM LCS TO [facility] COVERAGE Q6H.
[2025-03-29] MEDS ORDERED: Insulin Human Lispro 100 Units/ML 3ML Syringe SC SCH (00:25)
--- NOTE | 2025-03-29 04:14 | NUR ---
PT Q4H 0400 406, HOSPITALIST NOTIFIED AND NO ADDITIONAL COVERAGE ADDED TO 10 UNITS PER MCS FOR Q6H.
--- NOTE | 2025-03-29 05:27 | NUR ---
SHIFT SUMMARY NOC PT A/O X 4. PLEASANT AND COOPERATIVE WITH CARE. ON COMFORT CARE MEASURES, BUT STILL RECEIVING Q4H CBG CHECKS 277, 286, AND 406 AND HUMALOG NOW [facility] COVERAGE. PT DID NOT HAVE C/O N/V. TORRES IN PLACE FOR COMFORT. PT SLEPT FOR MAJORITY OF SHIFT. PT CURRENTLY AWAITING DISCHARGE ON [facility], BUT IS LOOKING FOR OUTSIDE SERVICE TO PROVIDE IV MEDICATIONS AT HOME. PT CURRENTLY RESTING WITH BED IN LOWEST POSITION, AND CALL LIGHT WITHIN REACH.
[2025-03-29 07:33] VITALS: BP 195/67
[2025-03-29] MEDS ORDERED: Ondansetron HCl 2 MG / ML 2ML Vial IV PRN (14:15)
[2025-03-29] MEDS ORDERED: Pantoprazole Sodium 40 MG Injection IV ONE (14:20)
[2025-03-29 15:37] VITALS: BP 160/64
--- NOTE | 2025-03-29 18:38 | NUR ---
END OF SHIFT NOTE PATIENT RESTING IN BED, A&O4, BED IN LOWEST POSITION, CALL LIGHT IN REACH. PATIENT REFUSED ALL MEALS TODAY, AT ICE CREAM AND SOME CRACKERS AND ICE CHIPS TODAY. VOMITING ALL DAY, ADJUSTMENT MEDICATIONS PER EMAR, NO IMPROVEMENT. PATIENT REFUSED ORAL MEDICATION. DR PRESLEY IN TO ASSESS. DISCUSSION ABOUT VOMITING AND POSSIBLE GI BLEED. COFFEE GROUND EMISIS SEEN BY RN AND DR PRESLEY. PALLIATIVE CARE TO CONSULT WITH PATIENT. WORKING ON DISCHARGE PLANE WITH CASE MANAGEMENT. NO OTHER CONCERNS.
--- NOTE | 2025-03-29 20:00 | NUR ---
Assume Care @ 1900 AOx4. Provided items for oral care, performed independently at the bedside. Nauseous per patient, but no emesis at this time. Vanilla ice cream brought in per patient request. Comb and cold wash cloth also provided. Stated 11/08 pain but refused pain meds. States "If only I can get this nausea under control, I wouldn't be in so much pain." Offered phenergan, zofran, atropine, and scopolamine patch, all of which were available. Discussed purpose of these meds and how they can assist with controlling nausea, perhaps even better than Reglan but patient declined and perfers Reglan only. Patient is aware that Reglan is unavailable until 2029 and she is willing to wait. WCTM.
--- NOTE | 2025-03-30 05:06 | NUR ---
Shift Summary AOx4. Patient declining pain meds, requesting only for reglan (see previous note). Claims she will be discharging today to "go home to ." Expresses concern over whether or not Attending will address her "coffee-ground emesis." Started conversation about her code/comfort care status and what her ultimate goal is. Pt verbalizes the desire for comfort. I did inform patient what comfort care entails includes the likelihood of no additional medical intervention; only symptom management. Also spelled out what this meant (ex: not addressing any new findings such as the coffee ground emesis and so forth). Patient did not seem interested in continuing this conversation, however did ask that this RN hand her purse to her. From there, she did take her home medication of 20mg rabeprazole sodium tablet. Patient is aware she can not take her own medications from home after I commented on her action. She repeatedly stated, "I know. I know. I know. But I am going home to in 4 hours anyway." Was agreeable to locking her purse in her closet for the remainder of the time while she is still here as she had other meds in her purse too (both home insulins). At this point, patient was medicated w/ reglan for nausea. Patient verbalized frustration about lack of long acting insulin coverage that has caused her blood sugars to get out of control despite nausea/vomiting and not eating much. To note, patient reports not having a bowel movement for over 2 weeks but declines any bowel meds as she believes she does not have any poop because she has not been able to eat anything for several weeks. Last charted bm was 03/18. Tried to educate RE constipation playing a role in her nausea, but patient was uninterested as evidence by closing her eye and not responding to anything I said. Overall, no acute changes this shift. WCTM.
--- NOTE | 2025-03-30 11:30 | NUR ---
PT REPORTS LOOKING FORWARD TO GOING HOME TODAY. PLAN IS FOR ANGELITA TO ADMIT TO HOSPICE. NO ACUTE NEEDS AT THIS TIME.
[2025-03-30] MEDS ORDERED: Pantoprazole Sodium 40 MG Injection IV ONE (11:45)
--- NOTE | 2025-03-30 12:30 | NUR ---
Spiritual Care Visit. Pt. is resting in bed and keeps her eyes closed for much of the visit. Pt. does engage with brief responses. Pt. displayed evidence of remembering this night time nanny from a previous visit. Pt. continues to display evidence of somnolence. Prayed with the Pt. Pt. verbalized gratitude for the spiritual care visit and prayer. Will remain available to the Pt. and family.
[2025-03-30] MEDS ORDERED: ONDA4ODT MM (13:46)
[2025-03-30] MEDS ORDERED: Acetaminophen650 M1 PO (13:47)
[2025-03-30] MEDS ORDERED: FENTANYL1 EA10 TOP (13:49)
[2025-03-30] MEDS ORDERED: Ativan1 MG PO (13:50)
[2025-03-30] MEDS ORDERED: MORP20L SL (13:52)
--- NOTE | 2025-03-30 16:33 | NUR ---
discharge PT DISCHARGE HOME VIA W/C VAN. PT HARD SCRIPT STAPLED TO HER DISCHARGE INFORMATION. FOLDER PUT IN PT PURSE IN A RED FOLDER. HOOP PUNCHER VERIFIED PER [employer].
== END 2025-03-30 16:32 | disposition hospice, home (50) | DRG 871 ==
LOC: ER 22:13 → ICUE 03-23 02:41 → ERHOLD 03-23 02:41 → PCU 03-23 02:41 → ICUE 03-23 03:15 → PCU 03-23 15:22 → MEDS 03-25 02:17 → ENPENDDIS 03-30 12:42 → MEDS 03-30 16:32
PROVIDERS: Emergency Medicine; Family Medicine; Student in an Organized Health Care Education/Training Program; ADMIT Internal Medicine
PROC: 0T9B70Z Drainage of Bladder with Drainage Device, Via Natural or Artificial Opening (ICD-10-PCS; principal; 2025-03-23)
PROC: 3E03329 Introduction of Other Anti-infective into Peripheral Vein, Percutaneous Approach (ICD-10-PCS; 2025-03-23)
PROC: 3E02340 Introduction of Influenza Vaccine into Muscle, Percutaneous Approach (ICD-10-PCS; 2025-03-23)
DX: A40.8 Other streptococcal sepsis (principal); I21.A1 Myocardial infarction type 2; J96.01 Acute respiratory failure with hypoxia; J96.02 Acute respiratory failure with hypercapnia; I50.21 Acute systolic (congestive) heart failure; N17.9 Acute kidney failure, unspecified; N13.6 Pyonephrosis; I13.0 Hypertensive heart and chronic kidney disease with heart failure and stage 1 through stage 4 chronic kidney disease, or unspecified chronic kidney disease; E87.4 Mixed disorder of acid-base balance; M62.82 Rhabdomyolysis; K92.0 Hematemesis; Z66 Do not resuscitate; E78.5 Hyperlipidemia, unspecified; M85.80 Other specified disorders of bone density and structure, unspecified site; Z51.5 Encounter for palliative care; F41.9 Anxiety disorder, unspecified; E11.22 Type 2 diabetes mellitus with diabetic chronic kidney disease; R33.8 Other retention of urine; R51.9 Headache, unspecified; N18.30 Chronic kidney disease, stage 3 unspecified; I48.0 Paroxysmal atrial fibrillation; D63.1 Anemia in chronic kidney disease; I25.10 Atherosclerotic heart disease of native coronary artery without angina pectoris; K21.9 Gastro-esophageal reflux disease without esophagitis; F42.9 Obsessive-compulsive disorder, unspecified; D69.6 Thrombocytopenia, unspecified; E11.65 Type 2 diabetes mellitus with hyperglycemia; Z23 Encounter for immunization; N20.0 Calculus of kidney; K44.9 Diaphragmatic hernia without obstruction or gangrene; Z87.19 Personal history of other diseases of the digestive system; Z88.2 Allergy status to sulfonamides; Z88.5 Allergy status to narcotic agent; Z88.0 Allergy status to penicillin; Z79.4 Long term (current) use of insulin; Z79.899 Other long term (current) drug therapy; Z79.891 Long term (current) use of opiate analgesic; Z85.068 Personal history of other malignant neoplasm of small intestine; Z98.890 Other specified postprocedural states; Z87.442 Personal history of urinary calculi
CPT/HCPCS: 36415; 71046; 71260; 80053; 80061; 80069; 81001; 82550; 82803; 82947; 83605; 83690; 83735; 83880; 84100; 84145; 84484; 85025; 85379; 85520; 85610; 87040; 87086; 87106; 87637; 93005; 93010; 94762; 96361; 96374; 96375; 96376; 99283-25; 99284; 99285-25; A9270; C8929; J0360; J0696; J0780; J1171; J1644; J1885; J1938; J2270; J2405; J2470; J2765; J3010; J3480; J7030; J7050; J7120; Q9957; Q9967